=== PATIENT | female | born 1945 | race Caucasian/White ===

== ENCOUNTER 2022-05-29 01:32 | Emergency (ER) | payer MEDICAID, SELFPAY ==
[2022-05-29 01:40] VITALS: BP 134/113; PULSE 99; RESP 28; TEMP 36.6; O2SAT 97; BMI 27.4
[2022-05-29 02:00] VITALS: BP 147/84; PULSE 92; RESP 18; O2SAT 98
--- NOTE | 2022-05-29 02:07 | CRLHL7_ITS ---
For Patients: As a result of the Century Cures Act, medical imaging exams and procedure reports are released immediately into your electronic medical record. You may view this report before your referring provider. If you have questions, please contact your health care provider. INDICATION: Cough. TECHNIQUE: Chest 1 view. COMPARISON: 07/30/2015. FINDINGS: Cardiovascular and mediastinum: Heart size and vasculature are normal in caliber and appearance. Lungs and pleural spaces: Lungs are clear. No sign of infiltrate or mass. No sign of pleural effusion. No pneumothorax. Bones and soft tissues: No significant findings. IMPRESSION: No acute airspace disease. Dictated by Jose Adames MD @ 05/29/2022 3:01:36 AM (Electronically Signed)
[2022-05-29] MEDS: RACEPINEPHRINE HCL 0.5 ML VIAL.NEB NEB (02:15)
[2022-05-29 02:30] VITALS: BP 143/75; PULSE 96; RESP 16; O2SAT 99
[2022-05-29 03:00] VITALS: BP 137/68; PULSE 86; RESP 16; O2SAT 94
[2022-05-29 03:30] VITALS: BP 137/64; PULSE 81; RESP 16; O2SAT 95
[2022-05-29 04:00] VITALS: BP 130/70; PULSE 80; RESP 16; O2SAT 93
--- NOTE | 2022-05-29 07:29 | ED_ITS ---
HPI - SOB/Dyspnea General Chief Complaint: Shortness of Breath/Dyspnea Stated Complaint: Asthma Attack Time Seen by Provider: 05/29/22 01:56 History of Present Illness HPI Narrative: 76-year-old woman presenting with her to the emergency department with complaint of 1 hour of coughing and just could not stop. Has had a number of assessments recently for cough and wheeze and congestion. Apparently has alternately been diagnosed with sinus disease and bronchitis and currently taking a course of prednisone and doxycycline. Did have imaging done a couple days ago showing some mild scarring in the left lower lobe. I am reviewing the chest x-ray dated 05/26/2022. Was doing a regularly scheduled nebulization when suddenly started having this coughing fit. At this point she feels like it is coming from her mid chest. She has been laryngitic as I note that during our in [place]. No new fever. No chest pain. Has been noted how she was extremely red in the face. History of reactive airway and sleep apnea on review of records. Related Data Home Medications Medication Instructions Recorded Confirmed albuterol sulfate 90 mcg/actuation 2 puff inhalation Q6H PRN 05/29/22 05/29/22 aerosol inhaler (Ventolin HFA) aspirin 81 mg chewable tablet 81 mg PO DAILY 05/29/22 05/29/22 benzonatate 100 mg capsule 100 mg PO TID PRN 05/29/22 05/29/22 budesonide-formoterol HFA 160 2 puff inhalation BID 05/29/22 05/29/22 mcg-4.5 mcg/actuation aerosol inhaler (Symbicort) calcium carbonate 600 mg calcium 600 mg PO BID 05/29/22 05/29/22 (1,500 mg) tablet cholecalciferol (vitamin D3) 50 50 mcg PO DAILY 05/29/22 05/29/22 mcg (2,000 unit) capsule (D3-2000) doxycycline hyclate 100 mg tablet 100 mg PO BID 05/29/22 05/29/22 fexofenadine 180 mg tablet 180 mg PO DAILY 05/29/22 05/29/22 (Yolette Allergy) fluoxetine 20 mg capsule 20 mg PO DAILY 05/29/22 05/29/22 glucosamine-chondroitin 500 mg-400 1 cap PO TID 05/29/22 05/29/22 mg capsule hydrochlorothiazide 12.5 mg tablet 25 mg PO DAILY 05/29/22 05/29/22 ipratropium 0.5 mg-albuterol 3 mg 3 ml inhalation Q6H PRN 05/29/22 05/29/22 (2.5 mg base)/3 mL nebulization soln levothyroxine 112 mcg tablet 112 mcg PO DAILY 05/29/22 05/29/22 (Synthroid) losartan 100 mg tablet 100 mg PO DAILY 05/29/22 05/29/22 omeprazole 20 mg capsule,delayed 20 mg PO DAILY 05/29/22 05/29/22 release polyethylene glycol 400 0.25 % eye 1 drp ophthalmic (eye) DAILY PRN 05/29/22 05/29/22 gel drops (Blink Gel Tears) potassium chloride 20 mEq 20 meq PO DAILY 05/29/22 05/29/22 tablet,extended release(part/cryst) (Klor-Con M) prednisone 20 mg tablet 40 mg PO DAILY 05/29/22 05/29/22 Allergies Allergy/AdvReac Type Severity Reaction Status Date / Time cefuroxime [From Ceftin] Allergy Hives Verified 05/29/22 01:47 levofloxacin Allergy hives, Verified 05/29/22 01:47 diarrhea, vomit, gi upset Penicillins Allergy Rash Verified 05/29/22 01:47 sulfamethoxazole Allergy Hives Verified 05/29/22 01:47 [From Bactrim] trimethoprim [From Bactrim] Allergy Hives Verified 05/29/22 01:47 Review of Systems Status of ROS: Reports: 6 or more systems reviewed and unremarkable except as noted in History and below PFSH COUNTS INCLUDE 234 BEDS AT THE [facility] Social History Smoking Status: Never smoker How often do you have a drink containing alcohol: never AUDIT-C Alcohol total score: 0 Non-prescribed substance use: denies use Exam Narrative: Exam Narrative: Room pleasant woman. Appears that if she will speak more of a catch in her voice and started coughing again. Laryngitic vocalizations. Nasopharyngeal congestion. Bordering on stridorous. Deep breaths during exam do inspire more coughing. Is quite chant[place] about her face and neck on initial evaluation. Lungs with good air movement. Thought there was little squeak that cleared in the right upper lung. Breath sounds throughout. There is no supraclavicular crepitus. Trachea is midline. Cardiovascular in an elevated rate but in regular rhythm. Her eyes are watering. Oropharynx is moist symmetrical. Mildly erythematous. Const: Vital Signs, click to edit/add: Vital Signs - 24 hr 05/29/22 01:40 05/29/22 02:00 05/29/22 02:30 Temperature 97.8 F Pulse Rate [Right Pulse Oximeter] 99 92 96 Respiratory Rate 28 H 18 16 Blood Pressure [Le ft Upper Arm] 134/113 H 147/84 H 143/75 H Pulse Oximetry 97 98 99 Oxygen Delivery Me thod Room Air Room Air 05/29/22 03:00 05/29/22 03:30 05/29/22 04:00 Temperature Pulse Rate [Right Pulse Oximeter] 86 81 80 Respiratory Rate 16 16 16 Blood Pressure [Le ft Upper Arm] 137/68 137/64 130/70 Pulse Oximetry 94 95 93 Oxygen Delivery Me thod Room Air Room Air Room Air Documenting provider has reviewed patient's vital signs: yes Course Vital Signs Vital signs: Initial Vital Signs Respiratory Depth Normal 05/29/22 01:39 Respiratory Pattern 05/29/22 01:39 Vital Signs Temperature 97.8 F 05/29/22 01:40 Pulse Rate 99 05/29/22 01:40 Respiratory Rate 28 H 05/29/22 01:40 Blood Pressure 134/113 H 05/29/22 01:40 Pulse Oximetry 97 05/29/22 01:40 Temperature 97.8 F 05/29/22 01:40 Pulse Rate 80 05/29/22 04:00 Respiratory Rate 16 05/29/22 04:00 Blood Pressure 130/70 05/29/22 04:00 Pulse Oximetry 93 05/29/22 04:00 Oxygen Delivery Method 05/29/22 04:00 MDM - SOB/Dyspnea MDM Narrative Medical decision making narrative: Certainly sounds to be a distressing and prolonged jag of coughing. Will monitor here in the emergency department. I did given epinephrine nebulization and recheck chest x-ray looking for pneumothorax or pneumomediastinum a possible evolution of pneumonia though I think that less likely. I think this is more of a laryngospasm. By my read chest x-ray without evidence of pneumothorax. No infiltrative process. With treatment as above and time, calmed. Phonating more easily. Breathing easily. Reddish complexion has diminished markedly. Medical Records Attestation: I reviewed the patient's medical records. Discharge Plan Discharge Clinical Impression: Laryngospasm, Cough Patient Disposition: Home w/ Parent or Adult Condition: Improved Additional Instructions: I would just rest your voice today. Might try sucking on ice chips as this might be further soothing. Menthol vapors might be helpful. Prescriptions: No Action doxycycline hyclate 100 mg tablet 100 mg PO BID prednisone 20 mg tablet 40 mg PO DAILY levothyroxine [Synthroid] 112 mcg tablet 112 mcg PO DAILY losartan 100 mg tablet 100 mg PO DAILY hydrochlorothiazide 12.5 mg tablet 25 mg PO DAILY potassium chloride [Klor-Con M20] 20 mEq tablet,ER particles/crystals 20 meq PO DAILY omeprazole 20 mg capsule,delayed release(DR/EC) 20 mg PO DAILY ipratropium-albuterol 0.5 mg-3 mg(2.5 mg base)/3 mL solution for nebulization 3 ml INHALATION Q6H PRN Label Comments: INHALE 3 ML VIA A NEBULIZER EVERY 6 HOURS IF NEEDED FOR SHORTNESS OF BREATH OR WHEEZING. albuterol sulfate [Ventolin HFA] 90 mcg/actuation HFA aerosol inhaler 2 puff INHALATION Q6H PRN benzonatate 100 mg capsule 100 mg PO TID PRN Label Comments: TAKE 1-2 CAPSULES (100-200 MG) BY MOUTH 3 TIMES DAILY IF NEEDED FOR COUGH. fluoxetine 20 mg capsule 20 mg PO DAILY fexofenadine [Yolette Allergy] 180 mg tablet 180 mg PO DAILY budesonide-formoterol [Symbicort] 160-4.5 mcg/actuation HFA aerosol inhaler 2 puff INHALATION BID aspirin 81 mg tablet,chewable 81 mg PO DAILY cholecalciferol (vitamin D3) [D3-2000] 50 mcg (2,000 unit) capsule 50 mcg PO DAILY calcium carbonate 600 mg calcium (1,500 mg) tablet 600 mg PO BID Blink Gel Tears 0.25 % drops,gel 1 drp ophthalmic (eye) DAILY PRN glucosamine-chondroitin 500-400 mg capsule 1 cap PO TID Rx Instructions: give with meal/snack Follow Up/Referrals: Lili Khan MD [Primary Care Provider] - Stand Alone Forms: [facility] Info Instructions
== END 2022-05-29 04:29 | disposition home or self-care (01) ==
LOC: ED 03:55
PROVIDERS: Emergency Provider Family Medicine; PCP Family Medicine
DX: J38.5 Laryngeal spasm (principal); R05.9 Cough, unspecified
CPT/HCPCS: 71045; 94640; 99283; 99284

== ENCOUNTER 2025-04-16 13:18 | Outpatient (CLI) | payer MEDICARE, SELFPAY | END 2025-04-16 13:19 | disposition home or self-care (01) | LOC: NFLDREF 04-19 19:43 | PROVIDERS: PCP Family Medicine; Referring Provider Family Medicine; Visit Provider Physician Assistant | DX: S20.222A Contusion of left back wall of thorax, initial encounter (principal) | CPT/HCPCS: 87086 ==